=== PATIENT | female | born 1990 | race Two or more races ===

== ENCOUNTER 2016-06-21 21:48 | Emergency (ER) | payer SELFPAY ==
[2016-06-21] MEDS ORDERED: PROCHLORPERAZINE EDISYLATE INJ 10 MG/2 ML VIAL IV ONE (23:47)
[2016-06-21] MEDS ORDERED: KETOROLAC TROMETHAMINE INJ/PF 30 MG/1 ML SDV IV ONE (23:47)
[2016-06-21] MEDS ORDERED: DIPHENHYDRAMINE HCL 50 MG/ML VIAL IV ONE (23:47)
[2016-06-22] MEDS ORDERED: BUTALB/ACETAMINOPHEN/CAFFEINE 1 TAB EACH PO ONE (00:05)
[2016-06-22] MEDS ORDERED: MECLIZINE HCL 25 MG TABLET PO ONE (00:05)
--- NOTE | 2016-06-22 00:06 | ER Document Report ---
ED General - General Chief Complaint: Headache Stated Complaint: HEADACHE Notes: Patient is a 25-year-old female who presents with acute onset of vertigo approximately 20 minutes prior to arrival. States that her left ear has had some mild sensation of fullness and she has felt like "I am on a boat" since that time. States she's had similar symptoms in the past and was followed up in an ear nose and throat clinic and diagnosed as having peripheral vertigo. Notes that she has had a mild, dull, constant bitemporal headaches since she woke up this morning which has mostly resolved at this time and is very similar to prior headaches she has had in the past. She has not seen her primary care doctor regarding today's concerns. Nothing improves or worsens or symptoms. She denies any focal weakness, numbness, difficulty with ambulation or altered mental status. TRAVEL OUTSIDE OF THE [place] IN LAST 30 DAYS: No Past Medical History - General Information source: Patient - Social History Smoking Status: Never Smoker Frequency of alcohol use: None Drug Abuse: None Lives with: Spouse/Significant other Family History: Reviewed & Not Pertinent Patient has suicidal ideation: No Patient has homicidal ideation: No Renal/ Medical History: Denies: Hx Peritoneal Dialysis Review of Systems - Review of Systems Notes: Constitutional: Negative for fever. HENT: Negative for sore throat. Eyes: Negative for visual changes. Cardiovascular: Negative for chest pain. Respiratory: Negative for shortness of breath. Gastrointestinal: Negative for abdominal pain, vomiting or diarrhea. Genitourinary: Negative for dysuria. Musculoskeletal: Negative for back pain. Skin: Negative for rash. Neurological: Positive for headache and vertigo 10 point ROS negative except as marked above and in HPI. Physical Exam - Vital signs Vitals: Temp Pulse Resp BP Pulse Ox 98.3 F 72 18 128/91 H 98 06/21/16 22:09 06/21/16 22:09 06/21/16 22:09 06/21/16 22:09 06/21/16 22:09 Interpretation: Normal Notes: PHYSICAL EXAMINATION: GENERAL: Well-appearing, well-nourished and in no acute distress. HEAD: Atraumatic, normocephalic. EYES: Pupils equal round and reactive to light, extraocular movements intact, sclera anicteric, conjunctiva are normal. ENT: nares patent, oropharynx clear without exudates. Moist mucous membranes. NECK: Normal range of motion, supple without lymphadenopathy LUNGS: Breath sounds clear to auscultation bilaterally and equal. No wheezes rales or rhonchi. HEART: Regular rate and rhythm without murmurs ABDOMEN: Soft, nontender, normoactive bowel sounds. No guarding, no rebound. No masses appreciated. EXTREMITIES: Normal range of motion, no pitting or edema. No cyanosis. NEUROLOGICAL: Face symmetric. Tongue protrudes midline. Extraocular motions intact. Pupils are 2 mm and equally reactive. Normal speech, normal gait. 5 out of 5 strength in both the distal and proximal upper and lower extremities bilaterally. Sensation is grossly intact throughout. Finger to nose testing normal. Pronator drift normal. PSYCH: Normal mood, normal affect. SKIN: Warm, Dry, normal turgor, no rashes or lesions noted. Course - Re-evaluation Re-evalutation: 06/22/16 00:04 Presentation of vertigo that appears most consistent with a benign peripheral vertigo. Patient does also complain of some mild headache which is very consistent with a tension type headache. The headache been present most all the day and the vertigo only started approximately one hour ago at the time of my assessment. I do not suspect an acute intracranial bleed or subarachnoid hemorrhage as a cause of her symptoms today. Patient has no abnormal findings on exam. Normal cerebellar testing, steady even gait. Able to walk on heels and toes. Normal proprioception. Patient is not an elevated risk for a cerebellar infarction given age, absence of significant risk factors. Patient did have improvement of symptoms here in the emergency department with meclizine. Suspect likely acute vestibular neuritis. I do not believe neurologic imaging is indicated at this time based on physical examination and clinical history. At this time will discharge with return precautions and follow-up recommendations. Verbal discharge instructions given a the bedside and opportunity for questions given. Medication warnings reviewed. Patient is in agreement with this plan and has verbalized understanding of return precautions and the need for primary care follow-up in the next 24-72 hours. - Vital Signs Vital signs: Temp Pulse Resp BP Pulse Ox 98.0 F 67 18 123/80 99 06/22/16 00:33 06/22/16 00:33 06/22/16 00:33 06/22/16 00:33 06/22/16 00:33 Discharge - Discharge Clinical Impression: Vertigo Condition: Good Disposition: HOME, SELF-CARE Additional Instructions: You were seen today for lightheadedness/dizziness. The exact cause of your symptoms is unclear but your workup here is reassuring without any concerning findings. Please follow closely with your primary care physician in the next 1- 3 days. Return if you pass out, have additional episodes of lightheadedness, develop weakness/numbness, have persistent vomiting, chest pain, shortness of breath or any other symptoms that are concerning to you. Take the meclizine 3 times daily as needed for a sensation of dizziness. Prescriptions: Meclizine HCl 25 mg PO TID PRN #30 tablet PRN Reason:
[2016-06-22 00:46] VITALS: BP 123/80
== END 2016-06-22 00:37 | disposition home or self-care (01) ==
LOC: ER 21:48
DX: R42 Dizziness and giddiness (principal); R51 Headache; H92.02 Otalgia, left ear
CPT/HCPCS: 99283; J3490